=== PATIENT | female | born 1995 | race Caucasian/White ===

== ENCOUNTER 2019-04-16 10:18 | Emergency (ER) | payer SELFPAY ==
[2019-04-16 11:16] LABS: #Eosinphils 0.1 thou/uL (0.0-0.7); #Lymphocytes 1.8 thou/uL (1.20-3.40); #Monocytes 0.9 thou/uL (0.11-0.59); #Neutrophils 9.4 thou/uL (1.40-6.50); %Basophils 0.3 % (0.0-1.0); %Eosinophils 0.5 % (0.0-10.0); %Lymphocytes 15.1 % (21.0-51.0); %Monocytes 7.5 % (0.0-10.0); %Neutrophils 76.6 % (42.0-75.0); Hemoglobin 14.1 g/dL (12.0-16.0); Mean Corpuscular HGB CONC 33.2 g/dL (32.0-36.0); Mean Corpuscular Hemoglobin 29.2 pg (27.0-31.0); Mean Platelet Volume 7.3 fL (7.4-10.4); Platelet Count 356 thou/uL (130-400); RBC Distribution Width 11.8 % (11.5-14.5); Red Blood Cell (RBC) Count 4.81 mill/uL (4.20-5.40); White Blood Cell (WBC) Count 12.2 thou/uL (4.8-10.8)
[2019-04-16 11:25] LABS: BHCG - Serum Negative (NEGATIVE); Pregs Control Background? CLEAR/WHITE (CLR/WHITE); Pregs Control Bar Appear? YES (CONTROL BAR)
[2019-04-16 11:43] LABS: ALT (SGPT) 9 U/L (8-55); AST (SGOT) 13 U/L (5-34); Albumin 4.1 g/dL (3.5-5.0); Alkaline Phosphatase 53 U/L (40-110); Anion Gap 11 mmol/L (10-20); BUN (Urea Nitrogen) 8 mg/dL (7.0-18.7); Bilirubin, Total 1.3 mg/dL (0.2-1.2); Calc. Creatinine Clearance 0 mL/min (70-130); Calcium 9.7 mg/dL (7.8-10.44); Carbon Dioxide 28 mmol/L (22-29); Chloride 102 mmol/L (98-107); Estimated GFR-MDRD Greater than 90; Globulin 3.1 g/dL (2.4-3.5); Glucose 80 mg/dL (70-105); Lipase 5 U/L (8-78); Protein, Total 7.2 g/dL (6.0-8.3); Sodium 137 mmol/L (136-145)
[2019-04-16 11:59] LABS: Bilirubin Negative (Negative); Blood, Urine Negative (Negative); Clarity Turbid (Clear); Glucose, Urine (Dipstick) Normal (Negative); Leukocyte Negative Leu/uL (Negative); Nitrite Negative (Negative); Protein, Urine (Dipstick) 70 mg/dL (Neg-Trace); RBC/HPF 0-3 HPF (0-3)
[2019-04-16 12:07] LABS: Bacteria/HPF 2+ HPF (None Seen); Mucous/LPF 3+ LPF (<2+)
[2019-04-16] MEDS ORDERED: Iopamidol-370 76% 500 ML 1 ML ONE (13:52)
--- NOTE | 2019-04-16 13:54 | ULT ---
Pelvic sonogram transabdominal and transvaginal imaging HISTORY: Pelvic pain. FINDINGS: Urinary bladder is incompletely distended. Uterus has a heterogeneous echotexture and measu res up to 5.1 cm. Endometrium is 0.2 cm. Small amount of free fluid within the pelvis. Neither ovary is well delineated. A very large heterogeneous complex partially cystic mass occupies m ost of the pelvis, centered above the uterus. It measures up to 20.7 cm x 11.4 cm x 8.9 cm and demonstrates extensive internal vascular flow. IMPRESSION: Very large heterogeneous hypervascular pelvic mass. Origin is not evident. Please conside r CT evaluation with IV and oral contrast. Ovary is not visualized, obscured by mass. Small amount of free fluid.
--- NOTE | 2019-04-16 16:05 | CT ---
CT abdomen and pelvis with IV contrast HISTORY: Pelvic mass. Pain. FINDINGS: Centered within the central pelvis above the dome of the uterus and urinary bladder is a ve ry large heterogeneous predominantly lobulated and mostly well-circumscribed extensively complex mass that measures up to 18.3 cm length by 16.0 cm width by 9.2 cm depth. Extensive internal vascular ity and septations. The mass is mostly cystic with some enhancing septation throughout and soft tissue component inferiorly. It is not clear which adnexa from which the mass arises. Within the left side of the mass, a lobular component containing fat and dystrophic calcification is 2.9 cm x 2.0 cm greatest diameters on the axial images. There is distention of the left ovarian vein. Small amount of free fluid within the pelvis and extending along each paracolic gutter and into the l eft upper quadrant around the spleen. No evidence of bowel obstruction. 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
--- NOTE | 2019-04-16 16:14 | CON ---
DATE OF CONSULTATION: REQUESTING PHYSICIAN: Dr. Armendariz from the ER. TIME OF EVALUATION: Roughly 1520 hours to 1547 hours. LOCATION: OR bed 20. REASON FOR EVALUATION: A 24-year-old female with a "pelvic mass." CHIEF COMPLAINT: Pelvic pain. HISTORY OF PRESENT ILLNESS: A 24-year-old , with about a 4-day history of colicky/crampy pelvic pain. She denies any bleeding. She currently has Nexplanon in use and her 3-year anniversary for that is next month (May 2019). She has not seen a physician in many years, although she states that she does have a history of hypothyroidism and is not on any medications. She denies any changes in bowel or bladder issues, syncope, or stabbing abdominal pain. She denies any weight loss. REVIEW OF SYSTEMS: Complete review of systems was checked and is otherwise negative unless specified in the HPI. PAST MEDICAL HISTORY: Hypothyroidism, but she has been off medications for many years. ALLERGIES: NONE. PAST SURGICAL HISTORY: None. OB HISTORY: She is a G0. MEDICATIONS: Include Nexplanon for control. PHYSICAL EXAMINATION: VITAL SIGNS: I evaluated the patient at bedside and found her vital signs to be stable and she is afebrile. ABDOMEN: Soft and non-peritoneal. There is a palpable mass up to the umbilicus about 20 weeks size, but there is no rebound or guarding. There is no pain on deep palpation. LABORATORY DATA: CBC shows no acute findings. CMP is normal. Urine is dirty, but it has a voided sample. Ultrasound sono shows a 20 cm complex mass concerning for ovarian origin. CT scan was done and I was present for the CT performance in the ER. CT shows heterogeneous mass of unclear etiology, but I suspect that it is ovarian. 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 There is no ascites present. PLAN: I do not feel that the patient is currently peritoneal requires urgent surgery. However, I did discuss with her the need for exploratory laparotomy to get a final diagnosis of this mass. I also reviewed the case with Dr. Raven Varela and I have requested that her team sees her at [facility] [place] Friday or Friday, and I am waiting confirmation for that. Again, I did stress to the patient the need for surgical evaluation, but I do not feel that there is evidence of torsion or acute pathological process at this time that requires urgent exploration. Job ID: [id number]
[2019-04-19 19:32] LABS: Chlamydia by PCR Not Detected (NotDetected); GC by PCR Not Detected (NotDetected)
== END 2019-04-16 16:03 | disposition home or self-care (01) ==
LOC: ERS 10:18
DX: N76.0 Acute vaginitis (principal); B96.89 Other specified bacterial agents as the cause of diseases classified elsewhere; R19.00 Intra-abdominal and pelvic swelling, mass and lump, unspecified site; E03.9 Hypothyroidism, unspecified
CPT/HCPCS: 74177; 76856; 80053; 81003; 81015; 83690; 84443; 84703; 85025; 87480; 87491; 87510; 87591; 87660; 93976; Q9967